=== PATIENT | female | born 1995 | race Two or more races ===

== ENCOUNTER 2016-07-06 21:30 | Emergency (ER) | payer MEDICAID ==
[~2016-07-06] VITALS: Ht 160 cm; Wt 67.6 kg
[2016-07-06 22:26] LABS: Urine Bilirubin Negative (Negative); Urine Blood Negative /uL (Negative); Urine Color Yellow (Yellow); Urine Glucose Normal (Normal); Urine Ketone Negative (Negative); Urine Mucus FEW (None Seen); Urine Nitrite Negative (Negative); Urine RBC <1 /hpf (0 - 4); Urine Squamous Epithelial Cell FEW /hpf (<5); Urine Urobilinogen Normal (Negative); Urine pH 6.5 (5.0-8.0)
[2016-07-07] MEDS ORDERED: cefTRIAXone SODIUM 250 MG VL IM ONE (01:45)
[2016-07-07] MEDS ORDERED: AZITHROMYCIN 250 MG TAB PO ONE (01:45)
[2016-07-07 02:06] VITALS: BP 110/77
== END 2016-07-07 02:17 | disposition home or self-care (01) ==
LOC: ER 21:33
DX: R30.0 Dysuria (principal); Z20.2 Contact with and (suspected) exposure to infections with a predominantly sexual mode of transmission
CPT/HCPCS: 81001; 81025; 96372; 99284; J0696